=== PATIENT | male | born 1960 | race African-American/Black ===

== ENCOUNTER 2021-12-05 12:09 | Inpatient (IN) | payer OTHER ==
[2021-12-05 13:21] VITALS: BMI 27.1
[2021-12-05] MEDS ORDERED: ONDANSETRON *ODT* 4 MG TABLET SL PRN (14:45)
[2021-12-05] MEDS ORDERED: MAGNESIUM CITRATE 300 ML BOTTLE PO PRN (14:45)
[2021-12-05] MEDS ORDERED: BISMUTH SUBSALICYLATE 262 MG/15 ML BTL PO PRN (14:45)
[2021-12-05] MEDS ORDERED: NICOTINE 10 MG CARTRIDGE (INHALER) IH PRN (14:45)
[2021-12-05] MEDS ORDERED: ACETAMINOPHEN 325 MG TABLET (FP) PO PRN ×2 (14:45)
[2021-12-05] MEDS ORDERED: IBUPROFEN 400 MG TABLET (FP) PO PRN (14:45)
[2021-12-05] MEDS ORDERED: NALOXONE HCL (KLOXXADO) 8 MG SPRAY NS PRN (14:45)
[2021-12-05] MEDS ORDERED: LORazepam 1 MG TABLET PO PRN (14:45)
[2021-12-05] MEDS ORDERED: cloNIDine HCL 0.1 MG TABLET PO PRN (14:45)
[2021-12-05] MEDS ORDERED: DICYCLOMINE HCL 10 MG CAPSULE PO PRN (14:45)
[2021-12-05] MEDS ORDERED: methaDONE HCL 10 MG TABLET (FOR DETOX USE ONLY) PO ONE (14:45)
[2021-12-05] MEDS ORDERED: BENZOCAINE/MENTHOL (CHLORASEPTIC ) LOZENGE MM PRN (14:45)
[2021-12-05] MEDS ORDERED: LOPERAMIDE HCL 2 MG CAPSULE PO PRN (14:45)
[2021-12-05] MEDS ORDERED: MAG HYDROX/AL HYDROX/SIMETH 30 ML UNIT-DOSE CUP PO PRN (14:45)
[2021-12-05] MEDS ORDERED: MAGNESIUM HYDROX 2400MG/30ML ORAL SUSPENSION 30 ML CUP PO PRN (14:45)
[2021-12-05] MEDS ORDERED: methaDONE HCL 10 MG TABLET (FOR DETOX USE ONLY) ONE (15:04)
[2021-12-05] MEDS: PRENATAL VITAMINS W/ FOLIC ACID TABLET (FP) PO SCH (15:20)
[2021-12-05] MEDS: LORazepam 2 MG TABLET PO SCH (18:07)
[2021-12-05] MEDS: hydrOXYzine PAMOATE 25 MG CAPSULE (FP) PO SCH (18:08)
[2021-12-06] MEDS: THIAMINE HCL 100 MG TABLET (FP) PO SCH ×2 (00:12→23:38)
[2021-12-06] MEDS: hydrOXYzine PAMOATE 25 MG CAPSULE (FP) PO SCH ×6 (00:12→23:38)
[2021-12-06] MEDS: MELATONIN 5 MG TABLETS PO SCH ×2 (00:12→23:38)
[2021-12-06] MEDS: LORazepam 2 MG TABLET PO SCH ×5 (00:12→23:38)
[2021-12-06] MEDS: PRENATAL VITAMINS W/ FOLIC ACID TABLET (FP) PO SCH (11:02)
[2021-12-06] MEDS: IBUPROFEN 600 MG TABLET (FP) PO PRN (11:05)
[2021-12-06 12:43] LABS: HEMATOCRIT 47.3 % (35.4-49); HEMOGLOBIN 15.4 GM/dL (11.7-16.9); MCH 30.5 pg (25.7-33.7); MCHC 32.6 g/dl (32.0-35.9); MEAN CELL VOLUME 93.4 fl (80-96); MEAN PLT VOLUME 6.9 fl (7.5-11.1); PLATELET COUNT 390 10^3/uL (134-434); RBC 5.07 M/mm3 (4.00-5.60); RDW 13.8 % (11.9-15.9); WHITE BLOOD COUNT 5.7 K/mm3 (4.0-10.0)
[2021-12-06 13:00] LABS: ALBUMIN 3.2 g/dl (3.4-5.0); CALCIUM 9.1 mg/dL (8.5-10.1)
[2021-12-06 13:03] LABS: CREATININE 0.9 mg/dL (0.55-1.3)
[2021-12-06 13:04] LABS: BILIRUBIN,TOTAL 0.6 mg/dL (0.2-1)
[2021-12-06 13:05] LABS: TOT PROT 7.1 g/dl (6.4-8.2)
[2021-12-07] MEDS: LORazepam 1 MG TABLET PO SCH ×5 (06:19→22:54)
[2021-12-07] MEDS: hydrOXYzine PAMOATE 25 MG CAPSULE (FP) PO SCH ×5 (06:20→22:54)
[2021-12-07] MEDS: PRENATAL VITAMINS W/ FOLIC ACID TABLET (FP) PO SCH (09:25)
[2021-12-07] MEDS: IBUPROFEN 600 MG TABLET (FP) PO PRN (09:26)
[2021-12-07] MEDS ORDERED: methaDONE HCL 10 MG TABLET (FOR DETOX USE ONLY) PO ONE (10:00)
[2021-12-07] MEDS: BACLOFEN 10 MG TABLET (FP) PO PRN (18:11)
[2021-12-07] MEDS: THIAMINE HCL 100 MG TABLET (FP) PO SCH (22:54)
[2021-12-07] MEDS: MELATONIN 5 MG TABLETS PO SCH (22:54)
[2021-12-08] MEDS ORDERED: LORazepam 0.5 MG TABLET PO PRN
[2021-12-08] MEDS: hydrOXYzine PAMOATE 25 MG CAPSULE (FP) PO SCH ×4 (06:05→18:19)
[2021-12-08] MEDS: LORazepam 0.5 MG TABLET PO SCH ×3 (06:05→18:19)
[2021-12-08] MEDS: PRENATAL VITAMINS W/ FOLIC ACID TABLET (FP) PO SCH (10:04)
[2021-12-08] MEDS: BACLOFEN 10 MG TABLET (FP) PO PRN (10:06)
[2021-12-08] MEDS: IBUPROFEN 600 MG TABLET (FP) PO PRN (10:07)
[2021-12-09] MEDS: hydrOXYzine PAMOATE 25 MG CAPSULE (FP) PO SCH ×4 (00:37→15:31)
[2021-12-09] MEDS: MELATONIN 5 MG TABLETS PO SCH (00:37)
[2021-12-09] MEDS: LORazepam 0.5 MG TABLET PO SCH (00:38)
[2021-12-09] MEDS: THIAMINE HCL 100 MG TABLET (FP) PO SCH (00:38)
[2021-12-09] MEDS ORDERED: LORazepam 0.5 MG TABLET PO ONE (05:00)
[2021-12-09] MEDS: IBUPROFEN 600 MG TABLET (FP) PO PRN (05:50)
[2021-12-09] MEDS: PRENATAL VITAMINS W/ FOLIC ACID TABLET (FP) PO SCH (09:02)
[2021-12-09] MEDS ORDERED: methaDONE HCL 10 MG TABLET (FOR DETOX USE ONLY) PO ONE (10:00)
[2021-12-09] MEDS: BACLOFEN 10 MG TABLET (FP) PO PRN (10:54)
[2021-12-09 12:53] VITALS: BP 108/60; PULSE 92; RESP 1; TEMP 97.8
== END 2021-12-09 16:44 | disposition home or self-care (01) | DRG 773 ==
LOC: YASAS 12:09 → Y6N 14:43
PROVIDERS: ADMIT Allergy & Immunology; ATTEND Surgery
PROC: HZ2ZZZZ Detoxification Services for Substance Abuse Treatment (ICD-10-PCS; principal; 2021-12-05)
DX: F11.23 Opioid dependence with withdrawal (principal); F10.230 Alcohol dependence with withdrawal, uncomplicated; F14.20 Cocaine dependence, uncomplicated; Z86.19 Personal history of other infectious and parasitic diseases; Z99.89 Dependence on other enabling machines and devices
CPT/HCPCS: 36415; 80053; 85027; 86780; 86803; 87522; 87811; C9803-CS; J0475; U0003; U0005

== ENCOUNTER 2022-02-12 11:43 | Inpatient (IN) | payer OTHER ==
[2022-02-12 13:05] VITALS: BMI 23.5
[2022-02-12] MEDS ORDERED: IBUPROFEN 600 MG TABLET (FP) PO PRN (14:35)
[2022-02-12] MEDS ORDERED: BENZOCAINE/MENTHOL (CHLORASEPTIC ) LOZENGE MM PRN (14:35)
[2022-02-12] MEDS ORDERED: POLYETHYLENE GLYCOL (HEALTHYLAX) 3350 17 GM PACKET PO PRN (14:35)
[2022-02-12] MEDS ORDERED: MAG HYDROX/AL HYDROX/SIMETH 30 ML UNIT-DOSE CUP PO PRN (14:35)
[2022-02-12] MEDS ORDERED: MAGNESIUM HYDROX 2400MG/30ML ORAL SUSPENSION 30 ML CUP PO PRN (14:35)
[2022-02-12] MEDS ORDERED: DICYCLOMINE HCL 10 MG CAPSULE PO PRN (14:35)
[2022-02-12] MEDS ORDERED: ACETAMINOPHEN 325 MG TABLET (FP) PO PRN ×2 (14:35)
[2022-02-12] MEDS ORDERED: ONDANSETRON *ODT* 4 MG TABLET SL PRN (14:35)
[2022-02-12] MEDS ORDERED: LOPERAMIDE HCL 2 MG CAPSULE PO PRN (14:35)
[2022-02-12] MEDS ORDERED: IBUPROFEN 400 MG TABLET (FP) PO PRN (14:35)
[2022-02-12] MEDS ORDERED: BISMUTH SUBSALICYLATE 262 MG/15 ML BTL PO PRN (14:35)
[2022-02-12] MEDS ORDERED: NALOXONE HCL (KLOXXADO) 8 MG SPRAY NS PRN (14:35)
[2022-02-12] MEDS ORDERED: cloNIDine HCL 0.1 MG TABLET PO PRN (15:56)
[2022-02-12] MEDS: METHOCARBAMOL 500 MG TABLET PO PRN (15:56)
[2022-02-12] MEDS: PRENATAL VITAMINS W/ FOLIC ACID TABLET (FP) PO SCH (15:56)
[2022-02-12] MEDS: hydrOXYzine PAMOATE 25 MG CAPSULE (FP) PO PRN (15:56)
[2022-02-12] MEDS ORDERED: LORazepam 1 MG TABLET PO PRN (15:59)
[2022-02-12] MEDS: LORazepam 2 MG TABLET PO SCH ×2 (16:57→22:20)
[2022-02-12] MEDS ORDERED: methaDONE HCL 10 MG TABLET (FOR DETOX USE ONLY) PO ONE (17:00)
[2022-02-12] MEDS: MELATONIN 5 MG TABLETS PO SCH (22:19)
[2022-02-12] MEDS: THIAMINE HCL 100 MG TABLET (FP) PO SCH (22:19)
[2022-02-13] MEDS: LORazepam 2 MG TABLET PO SCH ×4 (05:23→22:23)
[2022-02-13 09:43] LABS: HEMATOCRIT 38.1 % (35.4-49); HEMOGLOBIN 12.7 GM/dL (11.7-16.9); MCH 29.8 pg (25.7-33.7); MCHC 33.4 g/dl (32.0-35.9); MEAN CELL VOLUME 89.1 fl (80-96); MEAN PLT VOLUME 6.4 fl (7.5-11.1); PLATELET COUNT 301 10^3/uL (134-434); RBC 4.27 M/mm3 (4.00-5.60); RDW 14.1 % (11.9-15.9); WHITE BLOOD COUNT 4.2 K/mm3 (4.0-10.0)
[2022-02-13 09:46] LABS: ALBUMIN 2.8 g/dl (3.4-5.0); BLOOD UREA NITROGEN 10.2 mg/dL (7-18); CALCIUM 8.3 mg/dL (8.5-10.1)
[2022-02-13 09:49] LABS: CREATININE 0.7 mg/dL (0.55-1.3)
[2022-02-13 09:50] LABS: TOT PROT 5.8 g/dl (6.4-8.2)
[2022-02-13] MEDS: PRENATAL VITAMINS W/ FOLIC ACID TABLET (FP) PO SCH (10:17)
[2022-02-13] MEDS: hydrOXYzine PAMOATE 25 MG CAPSULE (FP) PO PRN (10:17)
[2022-02-13] MEDS: METHOCARBAMOL 500 MG TABLET PO PRN (10:18)
[2022-02-13] MEDS: MELATONIN 5 MG TABLETS PO SCH (22:23)
[2022-02-13] MEDS: THIAMINE HCL 100 MG TABLET (FP) PO SCH (22:23)
[2022-02-14] MEDS: LORazepam 1 MG TABLET PO SCH ×4 (05:51→23:04)
[2022-02-14] MEDS ORDERED: methaDONE HCL 10 MG TABLET (FOR DETOX USE ONLY) PO ONE (10:00)
[2022-02-14] MEDS: hydrOXYzine PAMOATE 25 MG CAPSULE (FP) PO PRN (10:01)
[2022-02-14] MEDS: PRENATAL VITAMINS W/ FOLIC ACID TABLET (FP) PO SCH (10:01)
[2022-02-14] MEDS: METHOCARBAMOL 500 MG TABLET PO PRN (10:01)
[2022-02-14] MEDS: THIAMINE HCL 100 MG TABLET (FP) PO SCH (23:04)
[2022-02-14] MEDS: MELATONIN 5 MG TABLETS PO SCH (23:04)
[2022-02-15] MEDS ORDERED: LORazepam 0.5 MG TABLET PO PRN
[2022-02-15] MEDS: LORazepam 0.5 MG TABLET PO SCH ×4 (06:15→23:10)
[2022-02-15] MEDS: PRENATAL VITAMINS W/ FOLIC ACID TABLET (FP) PO SCH (10:26)
[2022-02-15] MEDS: METHOCARBAMOL 500 MG TABLET PO PRN (10:27)
[2022-02-15] MEDS: MELATONIN 5 MG TABLETS PO SCH (23:11)
[2022-02-15] MEDS: THIAMINE HCL 100 MG TABLET (FP) PO SCH (23:11)
[2022-02-16] MEDS ORDERED: LORazepam 0.5 MG TABLET PO ONE (05:00)
[2022-02-16] MEDS ORDERED: methaDONE HCL 10 MG TABLET (FOR DETOX USE ONLY) PO ONE (10:00)
[2022-02-16] MEDS: PRENATAL VITAMINS W/ FOLIC ACID TABLET (FP) PO SCH (10:06)
[2022-02-16] MEDS: METHOCARBAMOL 500 MG TABLET PO PRN ×2 (10:07→17:22)
[2022-02-16] MEDS: hydrOXYzine PAMOATE 25 MG CAPSULE (FP) PO PRN (17:22)
[2022-02-16 20:56] VITALS: TEMP 97.3
[2022-02-16] MEDS: THIAMINE HCL 100 MG TABLET (FP) PO SCH (23:30)
[2022-02-16] MEDS: MELATONIN 5 MG TABLETS PO SCH (23:30)
[2022-02-17 06:03] VITALS: BP 132/75; PULSE 68; RESP 16
[2022-02-17] MEDS: METHOCARBAMOL 500 MG TABLET PO PRN (07:28)
== END 2022-02-17 09:13 | disposition home or self-care (01) | DRG 773 ==
LOC: YASAS 11:43 → Y6N 15:18
PROVIDERS: ADMIT Allergy & Immunology; ATTEND Surgery
PROC: HZ2ZZZZ Detoxification Services for Substance Abuse Treatment (ICD-10-PCS; principal; 2022-02-12)
DX: F11.23 Opioid dependence with withdrawal (principal); F10.230 Alcohol dependence with withdrawal, uncomplicated; F14.20 Cocaine dependence, uncomplicated; Z86.19 Personal history of other infectious and parasitic diseases; Z99.89 Dependence on other enabling machines and devices; Z59.02 Unsheltered homelessness
CPT/HCPCS: 36415; 80053; 85027; 86780; C9803-CS; Q0162; U0003; U0005

== ENCOUNTER 2022-05-27 11:00 | Inpatient (IN) | payer OTHER ==
[2022-05-27 12:09] VITALS: BMI 22.5
[2022-05-27] MEDS ORDERED: NALOXONE HCL (KLOXXADO) 8 MG SPRAY NS PRN (12:23)
[2022-05-27] MEDS ORDERED: NALOXONE HCL 0.4 MG/ML VIAL IM PRN (12:23)
[2022-05-27] MEDS ORDERED: DICYCLOMINE HCL 10 MG CAPSULE PO PRN (12:23)
[2022-05-27] MEDS ORDERED: NICOTINE 7 MG/24 HOURS TOPICAL PATCH TD PRN (12:23)
[2022-05-27] MEDS ORDERED: ONDANSETRON *ODT* 4 MG TABLET SL PRN (12:23)
[2022-05-27] MEDS ORDERED: guaiFENesin 600 MG TABLET.ER (FP) PO PRN (12:23)
[2022-05-27] MEDS ORDERED: IBUPROFEN 600 MG TABLET (FP) PO PRN (12:23)
[2022-05-27] MEDS ORDERED: POLYETHYLENE GLYCOL (HEALTHYLAX) 3350 17 GM PACKET PO PRN (12:23)
[2022-05-27] MEDS ORDERED: NICOTINE 10 MG CARTRIDGE (INHALER) IH PRN (12:23)
[2022-05-27] MEDS ORDERED: NICOTINE POLACRILEX 2 MG GUM BUC PRN (12:23)
[2022-05-27] MEDS ORDERED: MAGNESIUM HYDROX 2400MG/30ML ORAL SUSPENSION 30 ML CUP PO PRN (12:23)
[2022-05-27] MEDS ORDERED: hydrOXYzine PAMOATE 25 MG CAPSULE (FP) PO PRN (12:23)
[2022-05-27] MEDS ORDERED: diazePAM 5 MG TABLET PO PRN (12:23)
[2022-05-27] MEDS ORDERED: IBUPROFEN 400 MG TABLET (FP) PO PRN (12:23)
[2022-05-27] MEDS ORDERED: MAG HYDROX/AL HYDROX/SIMETH 30 ML UNIT-DOSE CUP PO PRN (12:23)
[2022-05-27] MEDS ORDERED: ACETAMINOPHEN 325 MG TABLET (FP) PO PRN (12:23)
[2022-05-27] MEDS ORDERED: BENZONATATE 200 MG CAPSULE PO PRN (12:23)
[2022-05-27] MEDS ORDERED: METHOCARBAMOL 500 MG TABLET PO PRN (12:23)
[2022-05-27] MEDS ORDERED: BISMUTH SUBSALICYLATE 262 MG/15 ML BTL PO PRN (12:23)
[2022-05-27] MEDS ORDERED: LOPERAMIDE HCL 2 MG CAPSULE PO PRN (12:23)
[2022-05-27] MEDS ORDERED: BENZOCAINE/MENTHOL (CHLORASEPTIC ) LOZENGE MM PRN (12:23)
[2022-05-27] MEDS ORDERED: methaDONE HCL 10 MG TABLET PO ONE (15:30)
[2022-05-27] MEDS ORDERED: methaDONE 40 MG, methaDONE 20 MG PO ONE (15:30)
[2022-05-27] MEDS: diazePAM 5 MG TABLET PO SCH ×2 (18:04→22:39)
[2022-05-27 19:26] LABS: HEMATOCRIT 38.2 % (35.4-49); HEMOGLOBIN 12.8 GM/dL (11.7-16.9); MCH 30.3 pg (25.7-33.7); MCHC 33.5 g/dl (32.0-35.9); MEAN CELL VOLUME 90.4 fl (80-96); MEAN PLT VOLUME 6.8 fl (7.5-11.1); PLATELET COUNT 231 10^3/uL (134-434); RBC 4.22 M/mm3 (4.00-5.60); RDW 13.8 % (11.9-15.9); WHITE BLOOD COUNT 3.4 K/mm3 (4.0-10.0)
[2022-05-27 19:31] LABS: BLOOD UREA NITROGEN 12.3 mg/dL (7-18)
[2022-05-27 19:34] LABS: ALBUMIN 3.2 g/dl (3.4-5.0); CALCIUM 8.3 mg/dL (8.5-10.1)
[2022-05-27 19:37] LABS: CREATININE 0.7 mg/dL (0.55-1.3)
[2022-05-27 19:38] LABS: TOT PROT 6.6 g/dl (6.4-8.2)
[2022-05-27] MEDS: MELATONIN 5 MG TABLETS PO SCH (22:39)
[2022-05-27] MEDS: THIAMINE HCL 100 MG TABLET (FP) PO SCH (22:39)
[2022-05-28] MEDS: diazePAM 5 MG TABLET PO SCH ×4 (05:10→22:13)
[2022-05-28] MEDS ORDERED: methaDONE 40 MG, methaDONE 30 MG PO ONE ×2 (07:03→10:00)
[2022-05-28] MEDS ORDERED: methaDONE HCL 10 MG TABLET PO ONE (10:00)
[2022-05-28] MEDS: PRENATAL VITAMINS W/ FOLIC ACID TABLET (FP) PO SCH (10:08)
[2022-05-28] MEDS: MELATONIN 5 MG TABLETS PO SCH (22:14)
[2022-05-28] MEDS: THIAMINE HCL 100 MG TABLET (FP) PO SCH (22:15)
[2022-05-29] MEDS: diazePAM 5 MG TABLET PO SCH ×3 (05:17→22:36)
[2022-05-29] MEDS ORDERED: methaDONE HCL 40 MG DISPERSABLE TABLET PO ONE (06:00)
[2022-05-29] MEDS: PRENATAL VITAMINS W/ FOLIC ACID TABLET (FP) PO SCH (10:08)
[2022-05-29] MEDS: MELATONIN 5 MG TABLETS PO SCH (22:36)
[2022-05-29] MEDS: THIAMINE HCL 100 MG TABLET (FP) PO SCH (22:36)
[2022-05-30] MEDS: diazePAM 5 MG TABLET PO SCH ×2 (05:12→17:40)
[2022-05-30] MEDS ORDERED: methaDONE HCL 10 MG TABLET PO ONE (06:00)
[2022-05-30] MEDS ORDERED: methaDONE 80 MG, methaDONE 10 MG PO ONE (06:00)
[2022-05-30] MEDS: PRENATAL VITAMINS W/ FOLIC ACID TABLET (FP) PO SCH (10:25)
[2022-05-30] MEDS: MELATONIN 5 MG TABLETS PO SCH (22:23)
[2022-05-30] MEDS: THIAMINE HCL 100 MG TABLET (FP) PO SCH (22:23)
[2022-05-31] MEDS ORDERED: methaDONE HCL 40 MG DISPERSABLE TABLET PO ONE (06:00)
[2022-05-31] MEDS ORDERED: diazePAM 5 MG TABLET PO ONE (06:00)
[2022-05-31] MEDS ORDERED: methaDONE 80 MG, methaDONE 10 MG PO SCH (06:00)
[2022-05-31 06:22] VITALS: TEMP 97.5
[2022-05-31 09:56] VITALS: BP 110/78; PULSE 93; RESP 18
== END 2022-05-31 09:26 | disposition home or self-care (01) | DRG 773 ==
LOC: YASAS 11:00 → Y3N 12:36
PROVIDERS: ADMIT Allergy & Immunology; ATTEND Surgery
PROC: HZ2ZZZZ Detoxification Services for Substance Abuse Treatment (ICD-10-PCS; principal; 2022-05-27)
DX: F10.230 Alcohol dependence with withdrawal, uncomplicated (principal); F11.20 Opioid dependence, uncomplicated; F14.20 Cocaine dependence, uncomplicated; R63.4 Abnormal weight loss; Z68.22 Body mass index [BMI] 22.0-22.9, adult; Z86.19 Personal history of other infectious and parasitic diseases
CPT/HCPCS: 36415; 80053; 83036; 85027; 86780; 87811; 93005; 93010; C9803-CS; U0003; U0005

== ENCOUNTER 2022-11-19 13:30 | Inpatient (IN) | payer OTHER ==
[2022-11-19 14:50] VITALS: BMI 21.4
[2022-11-19] MEDS ORDERED: LOPERAMIDE HCL 2 MG CAPSULE PO PRN (16:05)
[2022-11-19] MEDS ORDERED: NALOXONE HCL (KLOXXADO) 8 MG SPRAY NS PRN (16:05)
[2022-11-19] MEDS ORDERED: POLYETHYLENE GLYCOL (HEALTHYLAX) 3350 17 GM PACKET PO PRN (16:05)
[2022-11-19] MEDS ORDERED: BENZOCAINE/MENTHOL (CHLORASEPTIC ) LOZENGE MM PRN (16:05)
[2022-11-19] MEDS ORDERED: ONDANSETRON *ODT* 4 MG TABLET SL PRN (16:05)
[2022-11-19] MEDS ORDERED: BISMUTH SUBSALICYLATE 524 MG/30 ML PO PRN (16:05)
[2022-11-19] MEDS ORDERED: MAG HYDROX/AL HYDROX/SIMETH 30 ML UNIT-DOSE CUP PO PRN (16:05)
[2022-11-19] MEDS ORDERED: ACETAMINOPHEN 325 MG TABLET (FP) PO PRN (16:05)
[2022-11-19] MEDS ORDERED: NALOXONE HCL 0.4 MG/ML VIAL IM PRN (16:05)
[2022-11-19] MEDS ORDERED: BENZONATATE 200 MG CAPSULE PO PRN (16:05)
[2022-11-19] MEDS ORDERED: MAGNESIUM HYDROX 2400MG/30ML ORAL SUSPENSION 30 ML CUP PO PRN (16:05)
[2022-11-19] MEDS ORDERED: IBUPROFEN 400 MG TABLET (FP) PO PRN (16:05)
[2022-11-19] MEDS ORDERED: guaiFENesin 600 MG TABLET.ER (FP) PO PRN (16:05)
[2022-11-19] MEDS ORDERED: DICYCLOMINE HCL 10 MG CAPSULE PO PRN (16:05)
[2022-11-19] MEDS: NICOTINE 14 MG/24 HOURS TOPICAL PATCH TD SCH (17:49)
[2022-11-19] MEDS: hydrOXYzine PAMOATE 25 MG CAPSULE (FP) PO PRN (17:52)
[2022-11-19] MEDS: diazePAM 5 MG TABLET PO PRN (17:52)
[2022-11-19] MEDS: diazePAM 5 MG TABLET PO SCH (22:35)
[2022-11-19] MEDS: MELATONIN 5 MG TABLETS PO SCH (22:35)
[2022-11-19] MEDS: THIAMINE HCL 100 MG TABLET (FP) PO SCH (22:36)
[2022-11-20] MEDS: diazePAM 5 MG TABLET PO SCH ×4 (05:30→23:45)
[2022-11-20 10:36] LABS: HEMATOCRIT 40.3 % (35.4-49); HEMOGLOBIN 13.7 GM/dL (11.7-16.9); MCH 30.5 pg (25.7-33.7); MEAN CELL VOLUME 89.8 fl (80-96); MEAN PLT VOLUME 6.2 fl (7.5-11.1); PLATELET COUNT 266 10^3/uL (134-434); RBC 4.49 M/mm3 (4.00-5.60); RDW 13.1 % (11.9-15.9); WHITE BLOOD COUNT 4.9 K/mm3 (4.0-10.0)
[2022-11-20 10:37] LABS: POTASSIUM 4.1 mmol/L (3.5-5.1)
[2022-11-20 11:17] LABS: CALCIUM 8.6 mg/dL (8.5-10.1)
[2022-11-20 11:18] LABS: BLOOD UREA NITROGEN 11.3 mg/dL (7-18)
[2022-11-20 11:20] LABS: CREATININE 0.6 mg/dL (0.55-1.3)
[2022-11-20 11:22] LABS: BILIRUBIN,TOTAL 0.4 mg/dL (0.2-1); TOT PROT 6.4 g/dl (6.4-8.2)
[2022-11-20] MEDS ORDERED: methaDONE HCL 10 MG TABLET (FOR DETOX USE ONLY) PO ONE (13:00)
[2022-11-20] MEDS: diazePAM 5 MG TABLET PO PRN (13:41)
[2022-11-20] MEDS: METHOCARBAMOL 500 MG TABLET PO PRN (13:45)
[2022-11-20] MEDS: PRENATAL VITAMINS W/ FOLIC ACID TABLET (FP) PO SCH (13:50)
[2022-11-20] MEDS: NICOTINE 14 MG/24 HOURS TOPICAL PATCH TD SCH (13:50)
[2022-11-20] MEDS ORDERED: methaDONE HCL 10 MG TABLET PO ONE ×2 (17:04)
[2022-11-20] MEDS: MELATONIN 5 MG TABLETS PO SCH (23:44)
[2022-11-20] MEDS: THIAMINE HCL 100 MG TABLET (FP) PO SCH (23:46)
[2022-11-21] MEDS: methaDONE 40 MG, methaDONE 20 MG PO SCH (05:28)
[2022-11-21] MEDS: diazePAM 5 MG TABLET PO SCH ×3 (05:29→22:22)
[2022-11-21] MEDS: METHOCARBAMOL 500 MG TABLET PO PRN ×3 (05:30→20:37)
[2022-11-21] MEDS: IBUPROFEN 600 MG TABLET (FP) PO PRN ×2 (05:51→20:39)
[2022-11-21] MEDS ORDERED: methaDONE HCL 10 MG TABLET PO SCH (06:00)
[2022-11-21] MEDS: PRENATAL VITAMINS W/ FOLIC ACID TABLET (FP) PO SCH (10:46)
[2022-11-21] MEDS: NICOTINE 14 MG/24 HOURS TOPICAL PATCH TD SCH (10:46)
[2022-11-21] MEDS: diazePAM 5 MG TABLET PO PRN (10:49)
[2022-11-21] MEDS: MELATONIN 5 MG TABLETS PO SCH (22:21)
[2022-11-21] MEDS: THIAMINE HCL 100 MG TABLET (FP) PO SCH (22:21)
[2022-11-22] MEDS: methaDONE 40 MG, methaDONE 20 MG PO SCH (05:29)
[2022-11-22] MEDS: METHOCARBAMOL 500 MG TABLET PO PRN (05:29)
[2022-11-22] MEDS: diazePAM 5 MG TABLET PO SCH ×2 (05:30→17:39)
[2022-11-22] MEDS ORDERED: methaDONE HCL 10 MG TABLET (FOR DETOX USE ONLY) PO ONE (10:00)
[2022-11-22] MEDS: PRENATAL VITAMINS W/ FOLIC ACID TABLET (FP) PO SCH ×2 (10:50→10:56)
[2022-11-22] MEDS: hydrOXYzine PAMOATE 25 MG CAPSULE (FP) PO PRN (11:33)
[2022-11-22] MEDS: IBUPROFEN 600 MG TABLET (FP) PO PRN (15:51)
[2022-11-22] MEDS: MELATONIN 5 MG TABLETS PO SCH (23:25)
[2022-11-22] MEDS: THIAMINE HCL 100 MG TABLET (FP) PO SCH (23:25)
[2022-11-23] MEDS: methaDONE 40 MG, methaDONE 20 MG PO SCH (05:18)
[2022-11-23] MEDS ORDERED: diazePAM 5 MG TABLET PO ONE (06:00)
[2022-11-23] MEDS: PRENATAL VITAMINS W/ FOLIC ACID TABLET (FP) PO SCH (10:12)
[2022-11-23 10:21] VITALS: BP 136/62; PULSE 85; RESP 18; TEMP 97.1
[2022-11-24] MEDS ORDERED: methaDONE HCL 10 MG TABLET (FOR DETOX USE ONLY) PO ONE (10:00)
== END 2022-11-23 09:23 | disposition home or self-care (01) | DRG 773 ==
LOC: YASAS 13:30 → Y6N 17:15
PROVIDERS: ADMIT Allergy & Immunology; ATTEND Surgery
PROC: HZ2ZZZZ Detoxification Services for Substance Abuse Treatment (ICD-10-PCS; principal; 2022-11-19)
DX: F10.230 Alcohol dependence with withdrawal, uncomplicated (principal); F11.20 Opioid dependence, uncomplicated; F14.20 Cocaine dependence, uncomplicated; F41.8 Other specified anxiety disorders; Z86.19 Personal history of other infectious and parasitic diseases; Z59.02 Unsheltered homelessness
CPT/HCPCS: 36415; 80053; 85027; 86780; 87635; 93005; 93010; Q0162